=== PATIENT | male | born 1995 | race Caucasian/White ===

== ENCOUNTER 2017-01-19 16:19 | Emergency (ER) | payer OTHER ==
[~2017-01-19] VITALS: Ht 170.2 cm; Wt 75.7 kg
[2017-01-19 17:07] VITALS: BP 140/78
== END 2017-01-19 18:23 | disposition home or self-care (01) ==
LOC: ER 16:32
DX: S60.211A Contusion of right wrist, initial encounter (principal); S60.212A Contusion of left wrist, initial encounter; W01.0XXA Fall on same level from slipping, tripping and stumbling without subsequent striking against object, initial encounter; Y93.89 Activity, other specified; Y92.89 Other specified places as the place of occurrence of the external cause; Y99.0 Civilian activity done for income or pay
CPT/HCPCS: 73110